=== PATIENT | female | born 1980 | race Caucasian/White ===

== ENCOUNTER 2016-03-23 17:48 | Emergency (ER) | payer OTHER ==
[2016-03-23 18:27] VITALS: BP 120/64
[2016-03-23] MEDS ORDERED: Cephalexin CAP* 500 MG PO ONE (19:33)
--- NOTE | 2016-03-23 19:37 | UC ---
Complaint Female HPI - HPI Summary HPI Summary: dysuria, inc frequency. Has had numerous UTIs, this feels the same. No fever, no vomiting, no vag discharge. Took OTC AZO - History Of Current Complaint Chief Complaint: UCGU Stated Complaint: POSSIBLE UTI Time Seen by Provider: 03/23/16 19:30 Hx Obtained From: Patient Hx Last Menstrual Period: 02/29/16 Onset/Duration: Gradual Onset, Lasting Days - 1 Timing: Constant Severity Initially: Mild Severity Currently: Moderate Character: Dull, Burning, Cramping Aggravating Factor(s): Urination Alleviating Factor(s): Nothing Associated Signs And Symptoms: Negative: Fever, Back Pain, Vaginal Bleeding/ Discharge, Vaginal Discharge, Nausea, Vomiting(# Of Episodes =), Genital Swelling, Genital Blisters Related Hx: Similar Episode/Dx as: - UTI - Allergies/Home Medications Allergies/Adverse Reactions: Allergies Allergy/AdvReac Type Severity Reaction Status Date / Time No Known Allergies Allergy Verified 03/23/16 18:23 Home Medications: Home Medications Phenazopyridine HCl [Azo Urinary Pain Relief] 95 mg PO ONCE 03/23/16 [History Confirmed 03/23/16] PMH/Surg Hx/FS Hx/Imm Hx Endocrine History Of: Reports: Thyroid Disease - Hypothyroidism - Surgical History Surgical History: None - Family History Known Family History: Positive: Hypertension Negative: Cardiac Disease, Diabetes - Social History Occupation: Employed Full-time Lives: With Family Alcohol Use: None Alcohol Amount: WINE COUPLE DAYS/ [place] Substance Use Type: None Smoking Status (MU): Never Smoked Tobacco Review of Systems Constitutional: Negative Skin: Negative Eyes: Negative ENT: Negative Respiratory: Negative Cardiovascular: Negative Gastrointestinal: Negative Genitourinary: Dysuria, Frequency, Urgency Motor: Negative Neurovascular: Negative Musculoskeletal: Negative Neurological: Negative Psychological: Negative All Other Systems Reviewed And Are Negative: Yes Physical Exam Triage Information Reviewed: Yes Appearance: Well-Appearing, No Pain Distress, Well-Nourished Vital Signs: Initial Vital Signs Temp 97.7 F 03/23/16 18:24 Pulse 77 03/23/16 18:24 Resp 16 03/23/16 18:24 BP 120/64 03/23/16 18:24 Pulse Ox 99 03/23/16 18:24 Vital Signs Reviewed: Yes Eye Exam: Normal ENT Exam: Normal Neck exam: Normal Respiratory Exam: Normal Cardiovascular Exam: Normal Abdomen Description: Positive: Other: - suprapubic tenderness Musculoskeletal Exam: Normal Neurological Exam: Normal Psychological Exam: Normal Skin Exam: Normal Diagnostics - Laboratory Diagnostic Studies Completed/Ordered: AZO discolors the urine, dip not helpful Complaint Female Dx - Differential Dx/Diagnosis Differential Diagnosis/HQI/PQRI: Ureteral Stone, Urinary Tract Infection Provider Diagnoses: UTI Discharge - Discharge Plan Condition: Stable Disposition: HOME Prescriptions: Cephalexin CAP* [Keflex CAP*] 500 mg PO TID #21 cap Patient Education Materials: Urinary Tract Infection in Women (ED) Referrals: No Primary Care Phys,NOPCP [Primary Care Provider] -
== END 2016-03-23 19:41 | disposition home or self-care (01) ==
LOC: UCCORT 17:48
DX: N39.0 Urinary tract infection, site not specified (principal); Z87.440 Personal history of urinary (tract) infections
CPT/HCPCS: 87086; 99212; A9270-GY; G0463

== ENCOUNTER 2017-01-01 11:10 | Inpatient (IN) | payer OTHER ==
[2017-01-01 12:15] LABS: ROM Internal QC QC Line Present
[2017-01-01] MEDS ORDERED: Oxytocin in LR* 20 UNITS/1,000 ML BAG IVPB SCH (13:00)
[2017-01-01 13:19] LABS: Hematocrit 35 % (35-47); Hemoglobin 12.2 g/dl (12.0-16.0); Mean Corpuscular HGB Conc 35 g/dl (31-36); Mean Corpuscular Hemoglobin 32 pg (27-31); Mean Corpuscular Volume 90 fL (80-97); Mean Platelet Volume 9 um3 (7.4-10.4); Red Blood Count 3.84 10^6/ul (4.0-5.4); Red Cell Distribution Width 13 % (10.5-15); White Blood Count 11.2 10^3/ul (3.5-10.8)
[2017-01-01] MEDS ORDERED: Oxytocin in LR* 20 UNITS/1,000 ML BAG IVPB ONE (13:24)
[2017-01-01] MEDS: Betamethasone INJ* 6 MG/ML 5 ML VIAL (30 MG) IM ONE (13:32)
[2017-01-01] MEDS ORDERED: Misoprostol TAB* 100 MCG VAGINAL ONE (19:24)
[2017-01-02] MEDS ORDERED: Misoprostol TAB* 100 MCG ONE (00:29)
[2017-01-02] MEDS ORDERED: Misoprostol TAB* 100 MCG VAGINAL ONE (00:33)
[2017-01-02] MEDS ORDERED: diPHENhydraMINE PO* 25 MG PO PRN (00:34)
[2017-01-02] MEDS ORDERED: Oxytocin in LR* 20 UNITS/1,000 ML BAG IVPB SCH ×2 (04:30→17:59)
[2017-01-02] MEDS: Levothyroxine TAB* 112 MCG TAB PO SCH (06:24)
[2017-01-02] MEDS ORDERED: Oxytocin in LR* 20 UNITS/1,000 ML BAG IVPB ONE (07:39)
[2017-01-02] MEDS: Betamethasone INJ* 6 MG/ML 5 ML VIAL (30 MG) IM ONE (14:10)
[2017-01-02] MEDS ORDERED: OBEPIDURAL* 250 ML ONE (14:22)
[2017-01-02] MEDS ORDERED: Phenylephrine IV* 40 MCG/ML 10 ML SYRINGE IV PUSH PRN ×2 (14:55)
[2017-01-02] MEDS ORDERED: Sodium Citrate/Citric Acid* 15 ML UDC PO PRN (14:55)
[2017-01-02] MEDS ORDERED: OBEPIDURAL* 250 ML EPIDURAL SCH (15:00)
[2017-01-02] MEDS ORDERED: fentaNYL* 50 MCG/ML 2 ML VIAL (100 MCG VIAL) ONE (15:42)
[2017-01-02] MEDS ORDERED: Dibucaine 1% 28.35 GM TUBE PR PRN (17:56)
[2017-01-02] MEDS ORDERED: Acetaminophen TAB* 325 MG PO PRN (17:56)
[2017-01-02] MEDS ORDERED: Glycerin ADULT SUPP PR PRN (17:56)
[2017-01-02] MEDS ORDERED: Measles, Mumps,Rubella VACC* 0.5 ML/VIAL SUBCUT ONE (17:56)
[2017-01-02] MEDS ORDERED: Witch Hazel PAD* JAR TOPICAL PRN (17:56)
[2017-01-03] MEDS: Ibuprofen TAB* 600 MG PO PRN ×4 (00:28→21:49)
[2017-01-03] MEDS: Levothyroxine TAB* 112 MCG TAB PO SCH (07:05)
[2017-01-03 07:51] LABS: Hematocrit 31 % (35-47); Mean Corpuscular HGB Conc 35 g/dl (31-36); Mean Corpuscular Hemoglobin 32 pg (27-31); Mean Corpuscular Volume 90 fL (80-97); Mean Platelet Volume 9 um3 (7.4-10.4); Red Blood Count 3.49 10^6/ul (4.0-5.4); Red Cell Distribution Width 13 % (10.5-15); White Blood Count 20.7 10^3/ul (3.5-10.8)
[2017-01-03] MEDS: Docusate CAP* 100 MG PO SCH ×4 (08:56→21:49)
[2017-01-03] MEDS ORDERED: Ferrous Gluconate TAB* 324 MG TAB PO SCH (09:00)
[2017-01-04] MEDS: Levothyroxine TAB* 112 MCG TAB PO SCH (07:32)
[2017-01-04] MEDS: Docusate CAP* 100 MG PO SCH ×2 (07:32→16:16)
[2017-01-04] MEDS: Ibuprofen TAB* 600 MG PO PRN ×2 (07:32→16:34)
[2017-01-04 09:09] VITALS: BP 99/69
== END 2017-01-04 18:38 | disposition home or self-care (01) | DRG 775 ==
LOC: MCHOBOUT 11:10 → MCHOB 12:30
PROVIDERS: ADMIT Midwife; ATTEND Midwife
PROC: 10E0XZZ Delivery of Products of Conception, External Approach (ICD-10-PCS; principal; 2017-01-02)
PROC: 4A1HXCZ Monitoring of Products of Conception, Cardiac Rate, External Approach (ICD-10-PCS; 2017-01-02)
DX: O42.113 Preterm premature rupture of membranes, onset of labor more than 24 hours following rupture, third trimester (principal); E03.9 Hypothyroidism, unspecified; O99.284 Endocrine, nutritional and metabolic diseases complicating childbirth; Z37.0 Single live birth; Z3A.36 36 weeks gestation of pregnancy
CPT/HCPCS: 36415; 76815; 84112; 85025; 85027; 86850; 86900; 86901; A9270-GY; J0702; J2540; J3010; S0191

== ENCOUNTER 2017-06-28 15:54 | Emergency (ER) | payer OTHER ==
[2017-06-28 17:22] VITALS: BP 112/68
--- NOTE | 2017-06-28 17:33 | UC ---
UC General HPI - HPI Summary HPI Summary: HEADACHE, SORE THROAT, CHILLS AND BODYACHES. BEGAN LAST PM - History of Current Complaint Hx Obtained From: Patient Hx Last Menstrual Period: not yet post Onset/Duration: Sudden Onset Timing: Constant Pain Intensity: 7 Associated Signs & Symptoms: Positive: Fever, Headache <Марина Haddad - Last Filed: 06/28/17 17:24> <Sandy Rodriguez - Last Filed: 06/28/17 18:39> - History of Current Complaint Chief Complaint: UCGeneralIllness Stated Complaint: COUGH/ST BODY ACHE Time Seen by Provider: 06/28/17 17:19 - Allergy/Home Medications Allergies/Adverse Reactions: Allergies Allergy/AdvReac Type Severity Reaction Status Date / Time No Known Allergies Allergy Verified 03/23/16 18:23 PMH/Surg Hx/FS Hx/Imm Hx Endocrine History: Thyroid Disease - Surgical History Surgical History: None - Family History Known Family History: Positive: Hypertension Negative: Cardiac Disease, Diabetes - Social History Lives: With Family Alcohol Use: None Alcohol Amount: WINE COUPLE DAYS/ [place] Substance Use Type: None Smoking Status (MU): Never Smoked Tobacco - Immunization History Most Recent Influenza Vaccination: declines Most Recent Pneumonia Vaccination: none Vaccination Up to Date: Yes <Марина Haddad - Last Filed: 06/28/17 17:24> Review of Systems Constitutional: Fever, Chills, Fatigue Skin: Negative Eyes: Negative ENT: Sore Throat Respiratory: Negative Cardiovascular: Negative Gastrointestinal: Negative Genitourinary: Negative Motor: Negative Neurovascular: Negative Musculoskeletal: Myalgia Neurological: Headache Psychological: Negative Is Patient Immunocompromised?: No All Other Systems Reviewed And Are Negative: Yes <Марина Haddad - Last Filed: 06/28/17 17:24> Physical Exam Triage Information Reviewed: Yes Appearance: Well-Appearing Vital Signs: Initial Vital Signs Temp 98.8 F 06/28/17 17:18 Pulse 107 06/28/17 17:18 Resp 18 06/28/17 17:18 BP 112/68 06/28/17 17:18 Pulse Ox 98 06/28/17 17:18 Vital Signs Reviewed: Yes Eyes: Positive: Conjunctiva Clear ENT: Positive: Pharyngeal erythema, TMs normal. Negative: Nasal congestion, Nasal drainage Neck: Positive: Supple, Nontender, Enlarged Nodes @ - PERITONSILAR Respiratory: Positive: Lungs clear, Normal breath sounds Cardiovascular: Positive: RRR, No Murmur Abdomen Description: Positive: Nontender, No Organomegaly, Soft Bowel Sounds: Positive: Present Musculoskeletal: Positive: ROM Intact Neurological: Positive: Alert Psychological: Positive: Age Appropriate Behavior Skin Exam: Normal <Марина Haddad - Last Filed: 06/28/17 17:24> Vital Signs: Initial Vital Signs Temp 98.8 F 06/28/17 17:18 Pulse 107 06/28/17 17:18 Resp 18 06/28/17 17:18 BP 112/68 06/28/17 17:18 Pulse Ox 98 06/28/17 17:18 <Sandy Rodriguez - Last Filed: 06/28/17 18:39> Diagnostics - Laboratory Diagnostic Studies Completed/Ordered: rapid strep and flu=negative <Марина Haddad - Last Filed: 06/28/17 17:24> Course/Dx - Course Course Of Treatment: rapid strep and flu are negative. s/s's suggest noris, tx supportive - Differential Dx - Multi-Symptom Provider Diagnoses: Influenza like illness <Марина Haddad - Last Filed: 06/28/17 17:24> Discharge - Sign-Out/Discharge Documenting (check all that apply): Discharge - Billing Disposition and Condition Condition: STABLE Disposition: HOME <Марина Haddad - Last Filed: 06/28/17 17:24> - Billing Disposition and Condition Condition: STABLE Disposition: HOME <Sandy Rodriguez - Last Filed: 06/28/17 18:39> - Discharge Plan Condition: Stable Disposition: HOME Patient Education Materials: Influenza (DC) Forms: *Work Release Referrals: Terrence Ledesma MD [Primary Care Provider] - 5 Days Attestation Statement User Type: Provider - I was available for consult. This patient was seen by the CLAUDIA. The patient was not presented to, seen by, or examined by me. -Leonela <Sandy Rodriguez - Last Filed: 06/28/17 18:39>
== END 2017-06-28 18:01 | disposition home or self-care (01) ==
LOC: UCCORT 15:54
DX: J11.1 Influenza due to unidentified influenza virus with other respiratory manifestations (principal)
CPT/HCPCS: 87502; 87651; 99211; G0463

== ENCOUNTER 2017-07-02 15:16 | Emergency (ER) | payer OTHER ==
[2017-07-02 16:35] VITALS: BP 121/65
--- NOTE | 2017-07-02 17:19 | RAD ---
INDICATION: Cough and fever x1 week COMPARISON: None TECHNIQUE: PA and lateral views of the chest were obtained. FINDINGS: The heart and mediastinum are normal in size and contour. The lungs are grossly clear. There is no evidence of large pleural effusion. Visualized bones are normal for the patient's age. There is no radiographic evidence of free air beneath the diaphragm IMPRESSION: No radiographic evidence of acute cardiopulmonary disease.
--- NOTE | 2017-07-02 17:26 | UC ---
Respiratory Complaint HPI - HPI Summary HPI Summary: 36 yo female with the onset of f/c, runny nose and cough 5 days ago puga and myalgias seen here rapid flu (-) felt a lot better after 48 hours then took a turn for the worse all symptoms worse than when initially seen here - History of Current Complaint Chief Complaint: UCGeneralIllness Stated Complaint: FLU LIKE SYMPTOMS WORSENING Time Seen by Provider: 07/02/17 16:33 Hx Obtained From: Patient Hx Last Menstrual Period: 04/2017 Onset/Duration: Gradual Onset Timing: Constant Severity Initially: Moderate Severity Currently: Moderate Pain Intensity: 7 Pain Scale Used: 0-10 Numeric Character: Cough: Nonproductive Aggravating Factors: Nothing Alleviating Factors: Nothing Associated Signs And Symptoms: Positive: Nasal Congestion - Allergies/Home Medications Allergies/Adverse Reactions: Allergies Allergy/AdvReac Type Severity Reaction Status Date / Time No Known Allergies Allergy Verified 07/02/17 16:25 Home Medications: Home Medications Ibuprofen TAB* [Advil TAB*] 600 mg PO Q6H PRN 07/02/17 [History Confirmed ] Naproxen Sod/Diphenhydramine [Aleve PM 220-25 mg] 2 tab PO BEDTIME PRN 07/02/17 [History Confirmed 07/02/17] Naproxen Sodium [Aleve] 660 mg PO DAILY PRN 07/02/17 [History Confirmed 07/02/17 ] Phenylephrine/Dm/Acetaminop/GG [Tylenol Cold-Flu Severe Caplet] 2 each PO DAILY PRN 07/02/17 [History Confirmed 07/02/17] PMH/Surg Hx/FS Hx/Imm Hx Previously Healthy: Yes - Surgical History Surgical History: None - Family History Known Family History: Positive: Hypertension Negative: Cardiac Disease, Diabetes - Social History Alcohol Use: None Alcohol Amount: WINE COUPLE DAYS/ [place] Substance Use Type: None Smoking Status (MU): Never Smoked Tobacco - Immunization History Most Recent Influenza Vaccination: declines Most Recent Pneumonia Vaccination: none Vaccination Up to Date: Yes Review of Systems Constitutional: Fever, Chills, Fatigue Skin: Negative Eyes: Negative ENT: Nasal Discharge, Sinus Congestion, Sinus Pain/Tenderness Respiratory: Cough Cardiovascular: Negative Gastrointestinal: Negative Genitourinary: Negative Motor: Negative Neurovascular: Negative Musculoskeletal: Myalgia Neurological: Negative Psychological: Negative Is Patient Immunocompromised?: No All Other Systems Reviewed And Are Negative: Yes Physical Exam Triage Information Reviewed: Yes Appearance: Well-Appearing, No Pain Distress, Well-Nourished Vital Signs: Initial Vital Signs Temp 101.9 F 07/02/17 16:29 Pulse 108 07/02/17 16:29 Resp 22 07/02/17 16:29 BP 121/65 07/02/17 16:29 Pulse Ox 99 07/02/17 16:29 Eyes: Positive: Conjunctiva Clear ENT: Positive: Hearing grossly normal, Nasal congestion, Nasal drainage, Tonsillar swelling, Uvula midline. Negative: Tonsillar exudate, Hoarse voice, Dental tenderness Neck: Positive: Supple, Nontender, Enlarged Nodes @ - ant cervical and post cerv L>R Respiratory: Positive: Chest non-tender, Normal breath sounds, No respiratory distress, No accessory muscle use Cardiovascular: Positive: RRR, No Murmur Musculoskeletal: Positive: ROM Intact, No Edema Neurological: Positive: Alert Psychological Exam: Normal Skin Exam: Normal UC Diagnostic Evaluation - Laboratory O2 Sat by Pulse Oximetry: 99 - normal/not hypoxic - Radiology Xray Interpretation: No Acute Changes Radiology Interpretation Completed By: Radiologist Respiratory Course/Dx - Differential Dx/Diagnosis Provider Diagnoses: acute cough. sinusitis Discharge - Sign-Out/Discharge Documenting (check all that apply): Discharge - Discharge Plan Condition: Stable Disposition: HOME Prescriptions: Amoxicillin PO (*) [Amoxicillin 875 MG (*)] 875 mg PO BID #14 tab Patient Education Materials: Sinusitis (ED), Acute Cough (ED) Forms: *Work Release Referrals: Terrence Ledesma MD [Primary Care Provider] - 3 Days (if still febrile) Additional Instructions: mucinex or robitussin for cough recheck for worsening symptoms - Billing Disposition and Condition Condition: STABLE Disposition: HOME
[2017-07-02] MEDS ORDERED: Amoxicillin PO (*) 500 MG CAP PO ONE (17:32)
== END 2017-07-02 17:42 | disposition home or self-care (01) ==
LOC: UCCORT 15:16
DX: R05 Cough (principal); J32.9 Chronic sinusitis, unspecified
CPT/HCPCS: 71046; 99212; A9270-GY; G0463

== ENCOUNTER 2018-03-19 13:25 | Emergency (ER) | payer OTHER ==
--- NOTE | 2018-03-19 13:54 | UC ---
UC General HPI - HPI Summary HPI Summary: 37 yo female presents with positive test. She tells me that around mid December (about 11 weeks ago) she had a negative and an inconclusive test. 5 days ago she retook a test and it was positive. Yesterday she began to have some b/l pelvic cramping. She has a history of miscarriages and is concerned something may be wrong and is curious how far along she is, because if she is - still unsure if she will terminate or not. Denies fever, chills, abdominal pain, n/v/d/c, dysuria, vaginal bleeding or discharge. - History of Current Complaint Stated Complaint: PREG TEST Time Seen by Provider: 03/19/18 13:54 Hx Obtained From: Patient Hx Last Menstrual Period: 04/2017 Onset Severity: Mild Current Severity: Mild - Allergy/Home Medications Allergies/Adverse Reactions: Allergies Allergy/AdvReac Type Severity Reaction Status Date / Time No Known Allergies Allergy Verified 03/19/18 13:55 PMH/Surg Hx/FS Hx/Imm Hx Endocrine History: Hypothyroidism - Surgical History Surgical History: None - Family History Known Family History: Positive: Hypertension Negative: Cardiac Disease, Diabetes - Social History Occupation: Employed Full-time Lives: With Family Alcohol Use: Occasionally Alcohol Amount: WINE COUPLE DAYS/ [place] Substance Use Type: None Smoking Status (MU): Never Smoked Tobacco - Immunization History Most Recent Influenza Vaccination: declines Most Recent Pneumonia Vaccination: none Vaccination Up to Date: Yes Review of Systems All Other Systems Reviewed And Are Negative: Yes Constitutional: Positive: Negative Skin: Positive: Negative Respiratory: Positive: Negative Cardiovascular: Positive: Negative Gastrointestinal: Positive: Negative Genitourinary: Positive: Other - Pelvic discomfort Motor: Positive: Negative Neurological: Positive: Negative Psychological: Positive: Negative Physical Exam - Summary Physical Exam Summary: GENERAL: NAD. WDWN. No pain distress. SKIN: No rashes, sores, lesions, or open wounds. NECK: Supple. Nontender. No lymphadenopathy. CHEST: CTAB. No r/r/w. No accessory muscle use. Breathing comfortably and in no distress. CV: RRR. Without m/r/g. Pulses intact. Cap refill <2seconds ABDOMEN: Soft. NTTP. No distention or guarding. No CVA tenderness. Bowel sounds present NEURO: Alert. PSYCH: Age appropriate behavior. Triage Information Reviewed: Yes Vital Signs: Vital Signs: Temp Pulse Resp BP Pulse Ox 98.3 F 77 15 102/44 100 03/19/18 13:51 03/19/18 13:51 03/19/18 13:51 03/19/18 13:51 03/19/18 13:51 Laboratory Tests 03/19/18 03/19/18 14:02 14:14 POC Urine Color Dark yellow POC Urine Clarity Slightly cloudy POC Urine pH 7.0 POC Ur Specif [place] 1.025 POC Urine Protein Negative POC Ur Glucose (UA) Negative POC Urine Ketones Negative POC Urine Blood Negative POC Urine Nitrite Negative POC Urine Bilirubin Negative POC Urine Urobilinogen 0.2 POC U Leukocyte Esteras Negative POC Ur Test Positive A Vital Signs Reviewed: Yes Course/Dx - Course Course Of Treatment: Ultrasound: IMPRESSION: #. Viable-appearing single intrauterine gestation with estimated gestational age of 11. weeks 5 days based on crown-rump length. Results discussed with pt and referral made to OBGYN. - Diagnoses Provider Diagnosis: Discharge - Sign-Out/Discharge Documenting (check all that apply): Patient Departure All imaging exams completed and their final reports reviewed: Yes - Discharge Plan Condition: Stable Disposition: HOME Patient Education Materials: (ED) Referrals: Terrence Ledesma MD [Primary Care Provider] - Pippa Morris MD [Medical Doctor] - As Soon As Possible Additional Instructions: If you develop a fever, shortness of breath, chest pain, new or worsening symptoms - please call your PCP or go to the ED. Your Ultrasound today estimates you at 11 weeks 5 days - Billing Disposition and Condition Condition: STABLE Disposition: Home
[2018-03-19 13:55] VITALS: BP 102/44
== END 2018-03-19 15:30 | disposition home or self-care (01) ==
LOC: UCEAST 13:25
DX: Z34.01 Encounter for supervision of normal first pregnancy, first trimester (principal); Z3A.11 11 weeks gestation of pregnancy
CPT/HCPCS: 76801; 81003; 84702; 99211; G0463

== ENCOUNTER 2018-07-18 10:33 | Emergency (ER) | payer OTHER ==
[2018-07-18 10:48] VITALS: BP 108/64
--- NOTE | 2018-07-18 11:32 | UC ---
FLU HPI - HPI Summary HPI Summary: 37-year-old female 29 weeks presents with 4 week history of nasal congestion, nasal discharge, sinus pressure, postnasal drip, and nonproductive cough. States she occasionally feels a little "wheezy". No history of asthma. Denies fever, chills, ear pain, sore throat, chest pain, or shortness of breath. - History of Current Complaint Chief Complaint: UCRespiratory Stated Complaint: cold/congestion Time Seen by Provider: 07/18/18 11:15 Hx Obtained From: Patient Hx Last Menstrual Period: 29 weeks preg. Pain Intensity: 0 - Allergy/Home Medications Allergies/Adverse Reactions: Allergies Allergy/AdvReac Type Severity Reaction Status Date / Time No Known Allergies Allergy Verified 07/18/18 10:42 Home Medications: Home Medications Levothyroxine TAB* [Synthorid 112 MCG TAB*] 125 mcg PO DAILY@0600 07/18/18 [ History] PMH/Surg Hx/FS Hx/Imm Hx Endocrine History: Hypothyroidism - Surgical History Surgical History: None - Family History Known Family History: Positive: Hypertension Negative: Cardiac Disease, Diabetes - Social History Occupation: Employed Full-time Lives: With Family Alcohol Use: None Alcohol Amount: WINE COUPLE DAYS/ [place] Substance Use Type: None Smoking Status (MU): Never Smoked Tobacco - Immunization History Most Recent Influenza Vaccination: declines Most Recent Pneumonia Vaccination: none Vaccination Up to Date: Yes Review of Systems All Other Systems Reviewed And Are Negative: Yes Constitutional: Negative: Fever, Chills Skin: Negative: Rash Eyes: Negative: Drainage, Eye Redness ENT: Positive: Nasal Discharge, Sinus Congestion, Sinus Pain/Tenderness. Negative: Sore Throat, Ear Ache Respiratory: Positive: Cough. Negative: Shortness Of Breath Cardiovascular: Negative: Palpitations, Chest Pain Gastrointestinal: Negative: Abdominal Pain, Vomiting, Diarrhea, Nausea Genitourinary: Positive: Negative Musculoskeletal: Positive: Negative Neurological: Positive: Negative Is Patient Immunocompromised?: No Physical Exam - Summary Physical Exam Summary: GENERAL APPEARANCE: Well developed, well nourished, alert and cooperative, and appears to be in no acute distress. EYES: Conjunctiva clear. No drainage. EARS: External auditory canals and tympanic membranes clear, hearing grossly intact. NOSE: Moderate to severe nasal congestion with mucosal erythema and edema. Maxillary sinus tenderness. THROAT: Pharynx cobblestoning. No tonsilar inflammation, swelling, exudate, or lesions. Uvula midline. NECK: Neck supple, non-tender without lymphadenopathy. CARDIAC: Normal S1 and S2. No S3, S4 or murmurs. Rhythm is regular. There is no peripheral edema, cyanosis or pallor. Extremities are warm and well perfused. Capillary refill is less than 2 seconds. Peripheral pulses intact. LUNGS: Clear to auscultation without rales, rhonchi, wheezing or diminished breath sounds. Dry, non-productive cough. ABDOMEN: Positive bowel sounds. Soft, nondistended, nontender. No guarding or rebound. No masses or hepatosplenomegally. MUSKULOSKELETAL: ROM intact to all extremities. No joint erythema or tenderness. Normal muscular development. Normal gait. SKIN: Skin normal color, texture and turgor with no lesions or eruptions. Triage Information Reviewed: Yes Vital Signs: Initial Vital Signs Temp 97.8 F 07/18/18 10:43 Pulse 74 07/18/18 10:43 Resp 18 07/18/18 10:43 BP 108/64 07/18/18 10:43 Pulse Ox 98 07/18/18 10:43 Vital Signs Reviewed: Yes Flu Course/Dx - Course Course Of Treatment: 37-year-old female 29 weeks presents with 4 week history of nasal congestion, nasal discharge, sinus pressure, postnasal drip, and nonproductive cough. States she occasionally feels a little "wheezy". No history of asthma. Denies fever, chills, ear pain, sore throat, chest pain, or shortness of breath. Afebrile. Vital signs stable. Exam revealed moderate to severe nasal congestion with mucosal erythema and edema, maxillary sinus tenderness, pharyngeal cobblestoning, and a dry nonproductive cough and was otherwise unremarkable. Considering the duration of her symptoms I'm going to treat her for an acute sinusitis with amoxicillin 875 mg twice a day 10 days as well as recommend symptomatic treatment including fluticasone nasal spray and saline rinses. I discussed with the patient the limited evidence regarding the safety of [id number] cold medications and have discouraged her from using these at this time. She has an appointment with her [facility]ANT HEALTH MANAGER scheduled for this Monday. I have encouraged her to keep this appointment and talk with her OB/ CREW ATTENDANT in about other options for treating her symptoms. Anticipatory guidance and warning symptoms are reviewed with the patient. Verbalizes understanding and agrees with plan of care. - Differential Dx/Diagnosis Differential Diagnosis/HQI/PQRI: Bronchitis, Influenza, Pneumonia, Upper Respiratory Infection Provider Diagnosis: Acute sinusitis Discharge - Sign-Out/Discharge Documenting (check all that apply): Patient Departure All imaging exams completed and their final reports reviewed: No Studies - Discharge Plan Condition: Stable Disposition: HOME Prescriptions: Amoxicillin 875 mg PO BID #20 tablet Fluticasone NASAL SPRAY 50MCG* [Flonase NASAL SPRAY 50MCG*] 2 spray BOTH NARES DAILY #1 btl Patient Education Materials: Sinusitis (ED) Referrals: Terrence Ledesma MD [Primary Care Provider] - Additional Instructions: Your history and exam are consistent with a sinus infection. Considering the duration of your symptoms we will treat you with an antibiotic for the infection. Start Amoxicillin 875 mg twice a day for 10 days. Take with food to avoid upset stomach. Be sure to complete the entire course even if feeling better. Use a saline rinse kit such as Neti Pot or NeilMed at least twice a day to help thin secretions and promote drainage of the sinuses. Use fluticasone (Flonase) nasal spray 2 sprays each nostril once daily. Take over the counter acetaminophen (Tylenol) according to directions as needed for pain or fever. Follow up with your [employer]ANT HEALTH MANAGER as scheduled on Monday. They may be able to recommend some other options for treating your symptoms if they are not improving. Seek immediate medical attention in the emergency room if you have fever greater than 100.5 F despite taking acetaminophen, have chest pain, difficulty breathing, are unable to swallow, or have any worsening of symptoms. - Billing Disposition and Condition Condition: STABLE Disposition: Home
== END 2018-07-18 12:01 | disposition home or self-care (01) ==
LOC: UCEAST 10:33
DX: O26.893 Other specified pregnancy related conditions, third trimester (principal); J01.90 Acute sinusitis, unspecified; Z3A.29 29 weeks gestation of pregnancy; E03.9 Hypothyroidism, unspecified
CPT/HCPCS: 99212; G0463

== ENCOUNTER 2018-10-06 19:59 | Inpatient (IN) | payer OTHER ==
[2018-10-06] MEDS ORDERED: Buffered Lidocaine 1% SYRIN* 1 ML/SYRINGE INTRADERM ONE (22:09)
[2018-10-06] MEDS ORDERED: Lactated Ringers 1000 ML Bag* 1,000 ML IV ONE (22:09)
--- NOTE | 2018-10-06 22:17 | HP ---
General Information - Reason for Visit Contractions - General Information Maternal Age: 37 Grav: 6 Para: 2 SAB: 2 IEA: 1 Estimated Due Date: 10/08/18 Determined By: LMP Gestational Age in Weeks/Days: 39 5/7 Maternal Blood Type and Rh: A Positive - Results this Serology/RPR Result: Non-Reactive Rubella Result: Non-Immune HBsAg Result: Negative HIV Result: Negative GBS Culture Result: Negative Past Medical History Delivery History: Hx Uncomplicated Vaginal Delivery Pertinent Past Medical History: See Records Past Medical History Comment: Anxiety, hypothyroidism Pertinent Past Surgical History: None Pertinent Family History: Non-Contributory - Antepartal Records Antepartal Records: Reviewed, Complicated by: - age 37 at delivery, rubella nonimmune, hypothyroidism on replacement, anxiety/panic treated with vistaril Review of Systems Constitutional: Uncomfortable CV Complaint: No Respiratory: Shortness of Breath: No Gastrointestinal: No Nausea/Vomiting, Normal Bowel Movement Genitourinary: No Dysuria, No Bleeding, No Leaking Fluid Musculoskeletal: Contractions Neurological: No Headache, No Visual Changes Movement: Normal Exam Allergies/Adverse Reactions: Allergies No Known Allergies Allergy (Verified 07/18/18 10:42) B/P: 109/67, P: 75, R: 18, T: 98.4 - Measurements Height: 5 ft 5 in Weight: 194 lb Weight in lbs: [id number] Body Mass Index (BMI): 32.3 Pre- Weight: 170 lb Weight Gained This : 24 lbs and 0 ozs - Exam Breast: Breast Exam Deferred CVA: No CVA Tenderness Extremities: No Edema Heart: Normal Rhythm/Heart Sounds HEENT: No Significant Findings Lungs: Clear Bilaterally Reflexes: DTR 2+ - Abdominal Exam Abdomen Exam: Non-Tender, Fundal Height Consistent with Dates - Ultrasound/Biophysical Profile Ultrasound Status: Not Done Targeted Exam Findings See L&D Outpatient Visit Provider Note for Findings: N/A Estimated Weight: 7 lb Cervical Exam: 4cm Effacement: 70% Station: -2 Presenting Part: Vertex Membrane Status: Intact Bleeding/Discharge: None EFM Findings - External Monitor Findings Baseline Heart Rate: 130 External Monitor Findings: Accelerations Present, No Pattern of Variable or Late Decelerations, Variability Moderate, Baseline Stable Contractions: Regular, Moderate, 45-90 Seconds Contraction Frequency: 2-5 min Assessment/Plan - Assessment A: IUP at 39 5/7 weeks Category I FHR, no evidence of metabolic acidemia GBS negative Early active labor P: Admit to inpatient Prefers to avoid epidural, will encourage comfort measures Reassess PRN Anticipate SVB - Plan Plan: Admit - Anticipate Vaginal Delivery - Date/Time of Admission Date of Admission: 10/06/18 Time of Admission: 20:30
[2018-10-06] MEDS ORDERED: Lactated Ringers 1000 ML Bag* 1,000 ML IV SCH ×2 (23:00→23:45)
[2018-10-06] MEDS ORDERED: Ibuprofen TAB* 600 MG ONE (23:33)
[2018-10-06] MEDS ORDERED: Lidocaine 1% INJ* 10 MG/ML 30 ML SDV ONE (23:35)
[2018-10-06] MEDS ORDERED: OXYTOCIN* 10 UNITS/ML 1 ML VIAL IM ONE (23:50)
[2018-10-06] MEDS ORDERED: Glycerin ADULT SUPP PR PRN (23:50)
--- NOTE | 2018-10-06 23:57 | PROCNOTE ---
[facility] OB: Delivery Note - Delivery A Date of : 10/06/18 Time of : 23:06 [place] Sex: Male Score 1 Minute: 9 Score 5 Minutes: 9 Gestational Age in Weeks and Days at Delivery: 39 Weeks and 5 Days Delivery Method: Spontaneous Vaginal Labor: Spontaneous Did Patient attempt ?: N/A, No Previous Amniotic Fluid: Clear Estimated Blood Loss: 450 Anesthesia/Analgesia: Nitrous-Labor Delivered By: Kika Rodriges - Nursery Level of Nursery: Regular/Bedside - Perineum Perineal Injury: Perineal Laceration, 1st Degree Perineal Injury Comment: and left labial Perineal Repair: By Delivering Practioner - Additional Delivery Notes Additional Delivery Notes: at 39 5/7 weeks in spontaneous labor experienced SROM to clear fluid at 2255, began pushing spontaneously with good maternal effort. Slow controlled delivery of head OA to INDER at 2306. Male infant delivered to maternal abdomen, HR > 110, spontaneous cry. Apgars 9 and 9. Cord doubly clamped and cut by FOB once pulsation ceased. Spontaneous chica placenta with gentle cord traction at 2312. Fundus firm with massage, brisk bleeding noted, Pitocin 10U IM given for active management of third stage. Perineum carefully inspected , first degree perineal laceration noted and left labial laceration, both repaired with 3-0 vicryl rapide. EBL =450. Mother and infant stable at time of note, initiated.
[2018-10-07] MEDS: Witch Hazel PAD* JAR TOPICAL PRN ×2 (00:16→14:31)
[2018-10-07] MEDS: Dibucaine 1% 28.35 GM TUBE PR PRN ×2 (00:17→14:31)
[2018-10-07 02:05] LABS: Urine Benzodiazepine Screen None Detected (None Detect); Urine Opiates Screen None Detected (None Detect)
[2018-10-07] MEDS: Acetaminophen TAB* 325 MG PO PRN ×4 (02:15→20:28)
[2018-10-07] MEDS: Ibuprofen TAB* 600 MG PO PRN ×3 (06:15→18:13)
[2018-10-07] MEDS: Levothyroxine TAB* 125 MCG TAB PO SCH (06:16)
[2018-10-07 06:43] LABS: ABS Basophils 0.1 10^3/ul (0-0.2); ABS Lymphocytes 2.1 10^3/ul (1.0-4.8); ABS Monocytes 1.1 10^3/ul (0-0.8); ABS Neutrophils 12.1 10^3/ul (1.5-7.7); Eosinophil % 0.1 %; Hematocrit 29 % (35-47); Hemoglobin 10.2 g/dL (12.0-16.0); Lymphocyte % 13.5 %; Mean Corpuscular HGB Conc 35 g/dL (31-36); Mean Corpuscular Hemoglobin 31 pg (27-31); Mean Corpuscular Volume 87 fL (80-97); Mean Platelet Volume 8.7 fL (7.4-10.4); Platelet Count 168 10^3/uL (150-450); Red Blood Count 3.32 10^6 /uL (3.70-4.87); Red Cell Distribution Width 14 % (10-15); White Blood Count 15.4 10^3/uL (3.5-10.8)
[2018-10-07] MEDS ORDERED: Simethicone TAB* 80 MG TAB.CHEW PO SCH (08:30)
[2018-10-07] MEDS: Ferrous Gluconate TAB* 324 MG TAB PO SCH ×2 (09:18→20:28)
[2018-10-07] MEDS: Docusate CAP* 100 MG PO SCH ×3 (09:19→20:28)
[2018-10-07] MEDS ORDERED: Sertraline* 25 MG TAB PO SCH (21:30)
[2018-10-08] MEDS: Ibuprofen TAB* 600 MG PO PRN ×2 (00:45→07:25)
[2018-10-08] MEDS: Acetaminophen TAB* 325 MG PO PRN ×2 (02:24→08:21)
[2018-10-08] MEDS: Levothyroxine TAB* 125 MCG TAB PO SCH (07:25)
[2018-10-08 07:52] VITALS: BP 116/70
[2018-10-08] MEDS: Ferrous Gluconate TAB* 324 MG TAB PO SCH (08:21)
[2018-10-08] MEDS: Docusate CAP* 100 MG PO SCH (08:21)
[2018-10-08] MEDS: Witch Hazel PAD* JAR TOPICAL PRN (11:22)
[2018-10-08] MEDS: Dibucaine 1% 28.35 GM TUBE PR PRN (11:22)
[2018-10-08] MEDS ORDERED: Measles, Mumps,Rubella VACC* 0.5 ML/VIAL SUBCUT ONE (11:36)
== END 2018-10-08 12:28 | disposition home or self-care (01) | DRG 807 ==
LOC: MCHOBOUT 19:59 → MCHOB 21:45
PROVIDERS: ADMIT Midwife; ATTEND Midwife
PROC: 10E0XZZ Delivery of Products of Conception, External Approach (ICD-10-PCS; principal; 2018-10-06)
PROC: 0HQ9XZZ Repair Perineum Skin, External Approach (ICD-10-PCS; 2018-10-06)
DX: O99.284 Endocrine, nutritional and metabolic diseases complicating childbirth (principal); Z37.0 Single live birth; E03.9 Hypothyroidism, unspecified; O99.344 Other mental disorders complicating childbirth; F41.9 Anxiety disorder, unspecified; O70.0 First degree perineal laceration during delivery; O90.81 Anemia of the puerperium; D64.9 Anemia, unspecified; Z3A.39 39 weeks gestation of pregnancy
CPT/HCPCS: 36415; 80307; 85025; A9270-GY; J2590

== ENCOUNTER 2019-06-08 18:52 | Emergency (ER) | payer OTHER ==
[2019-06-08 19:21] VITALS: BP 130/66
--- NOTE | 2019-06-08 19:28 | UC ---
FLU HPI - HPI Summary HPI Summary: 38-year-old female presents with 2 day history of general malaise, fatigue, body aches, low-grade fever, sore throat. No recent travel or known contact with persons isolated for or diagnosed with COVID-19. Denies ear pain, dysphagia, nasal congestion, runny nose, cough, chest pain, shortness of breath , abdominal pain, nausea, vomiting, or diarrhea. - History of Current Complaint Chief Complaint: UCRespiratory Stated Complaint: FEVER, SORE THROAT, BODY ACHES Time Seen by Provider: 06/08/19 18:54 Hx Obtained From: Patient Hx Last Menstrual Period: 05/16/19 Pain Intensity: 6 - Allergy/Home Medications Allergies/Adverse Reactions: Allergies Allergy/AdvReac Type Severity Reaction Status Date / Time No Known Allergies Allergy Verified 06/08/19 18:57 Home Medications: Home Medications Levothyroxine TAB* [Synthroid 125 MCG TAB*] 125 mcg PO DAILY@0600 tab 10/08/18 [Rx Confirmed 06/08/19] Sertraline* [Zoloft*] 25 mg PO DAILY@2100 tab 10/08/18 [Rx Confirmed 06/08/19] ALPRAZolam TAB* [Xanax TAB*] 0.25 mg PO Q6H PRN 06/08/19 [History Confirmed ] Amoxicillin PO (*) [Amoxicillin 500 MG CAP*] 500 mg PO Q12H #19 cap 06/08/19 [Rx ] PMH/Surg Hx/FS Hx/Imm Hx Endocrine History: Thyroid Disease Psychological History: Anxiety, Depression - Surgical History Surgical History: None - Family History Known Family History: Positive: Hypertension Negative: Cardiac Disease, Diabetes - Social History Occupation: Employed Full-time Lives: Alone Alcohol Use: Weekly Alcohol Amount: WINE COUPLE DAYS/ WK Substance Use Type: None Smoking Status (MU): Never Smoked Tobacco - Immunization History Most Recent Influenza Vaccination: 05/03/18 Most Recent Pneumonia Vaccination: none Vaccination Up to Date: Yes Review of Systems All Other Systems Reviewed And Are Negative: Yes Constitutional: Positive: Fever, Fatigue Skin: Negative: Rash Eyes: Negative: Drainage, Eye Redness ENT: Positive: Sore Throat. Negative: Ear Ache, Nasal Discharge, Sinus Congestion, Sinus Pain/Tenderness Respiratory: Negative: Shortness Of Breath, Cough Cardiovascular: Negative: Chest Pain Gastrointestinal: Negative: Abdominal Pain, Vomiting, Diarrhea, Nausea Genitourinary: Positive: Negative Musculoskeletal: Positive: Myalgia Neurological/Mental Status: Positive: Negative Is Patient Immunocompromised?: No Physical Exam - Summary Physical Exam Summary: GENERAL APPEARANCE: Well developed, well nourished, alert and cooperative, and appears to be in no acute distress. EYES: Conjunctiva clear. No drainage. EARS: External auditory canals and tympanic membranes clear, hearing grossly intact. NOSE: No nasal discharge. THROAT: Pharyngeal erythema. No tonsilar inflammation, swelling, exudate, or lesions. Uvula midline. NECK: Neck supple, non-tender. Anterior cervical lymphadenopathy. CARDIAC: Normal S1 and S2. No S3, S4 or murmurs. Rhythm is regular. There is no peripheral edema, cyanosis or pallor. Extremities are warm and well perfused. Capillary refill is less than 2 seconds. Peripheral pulses intact. LUNGS: Clear to auscultation without rales, rhonchi, wheezing or diminished breath sounds. ABDOMEN: Positive bowel sounds. Soft, nondistended, nontender. No guarding or rebound. No masses or hepatosplenomegally. MUSKULOSKELETAL: ROM intact to all extremities. No joint erythema or tenderness. Normal muscular development. Normal gait. SKIN: Skin normal color, texture and turgor with no lesions or eruptions. Triage Information Reviewed: Yes Vital Signs: Initial Vital Signs Temp 97.4 F 06/08/19 18:59 Pulse 110 06/08/19 18:59 Resp 16 06/08/19 18:59 BP 130/66 06/08/19 18:59 Pulse Ox 100 06/08/19 18:59 Vital Signs Reviewed: Yes Flu Course/Dx - Course Course Of Treatment: 38-year-old female presents with 2 day history of general malaise, fatigue, body aches, low-grade fever, sore throat. No recent travel or known contact with persons isolated for or diagnosed with COVID-19. Denies ear pain, dysphagia, nasal congestion, runny nose, cough, chest pain, shortness of breath , abdominal pain, nausea, vomiting, or diarrhea. Afebrile. Mildly hypertensive and tachycardic otherwise vital signs stable. Patient had no nasal congestion, normal TMs, pharyngeal erythema without tonsillar swelling or exudate, anterior cervical lymphadenopathy, clear bilateral breath sounds, but otherwise unremarkable exam. Rapid flu test was negative. Rapid strep test was positive. Reviewed results with the patient. We'll treat her for a strep pharyngitis with amoxicillin 500 mg twice a day 10 days. She received the first dose in the stomach. Additionally recommending symptomatic treatment. She is to follow-up with her primary care provider in 3-5 days if symptoms are not improving. Anticipatory guidance warning symptoms were reviewed with the patient. Verbalizes understanding and agrees with plan of care. - Differential Dx/Diagnosis Differential Diagnosis/HQI/PQRI: Bronchitis, Influenza, Pneumonia, Upper Respiratory Infection, Other - Pharyngitis Provider Diagnosis: Strep pharyngitis Discharge ED - Sign-Out/Discharge Documenting (check all that apply): Patient Departure All imaging exams completed and their final reports reviewed: No Studies - Discharge Plan Condition: Stable Disposition: HOME Prescriptions: Amoxicillin PO (*) [Amoxicillin 500 MG CAP*] 500 mg PO Q12H #19 cap Patient Education Materials: Strep Throat (ED) Referrals: Rizwan Horan MD [Primary Care Provider] - Additional Instructions: Your rapid strep test in the clinic today was positive. We will start you on an antibiotic to treat the infection. Start amoxicillin 500 mg 1 cap twice a day for 10 days. Be sure to complete the entire course even if feeling better. After you have been on antibiotics for 3 days, throw out your toothbrush and replace with a new one to prevent reinfection. Drink plenty of fluids to avoid dehydration especially if you are running any fever. Use salt water gargles several times a day. Take over the counter acetaminophen (Tylenol) or ibuprofen (Advil, Motrin) according to directions as needed for pain or fever. You may also use Chloraseptic spray or Cepacol lonzenges according to directions which contain a numbing medication and can provide some temporary relief from your sore throat. Return here or follow up with your primary care provider in 3-5 days if symptoms do not improve. Seek immediate medical attention in the emergency room if you have fever greater than 100.5 F despite taking acetaminophen or ibuprofen, are unable to swallow or develop drooling, are unable to open your mouth fully, are unable to eat or drink, have pain that is not relieved with over the counter pain medication, have any difficulty breathing, or any worsening of symptoms. - Billing Disposition and Condition Condition: STABLE Disposition: Home - Attestation Statements Provider Attestation: This patient was not seen by me. I was available for consult. Chart reviewed. ADALID
[2019-06-08 19:30] LABS: Influenza A Molecular Negative (Negative); Influenza B Molecular Negative (Negative)
[2019-06-08] MEDS ORDERED: Amoxicillin PO (*) 500 MG CAP PO ONE (19:35)
== END 2019-06-08 19:44 | disposition home or self-care (01) ==
LOC: UCCORT 18:52
DX: J02.0 Streptococcal pharyngitis (principal); E07.9 Disorder of thyroid, unspecified; F41.9 Anxiety disorder, unspecified; F32.9 Major depressive disorder, single episode, unspecified; Z79.890 Hormone replacement therapy; Z79.899 Other long term (current) drug therapy
CPT/HCPCS: 87651; 99212; A9270-GY; G0463